=== PATIENT | female | born 1965 | race Caucasian/White ===

== ENCOUNTER → 2017-06-18 | Day surgery (SDC) | payer MEDICARE, MEDICAID ==
[~2017-06-18] MED LIST: AMLODIPINE BESYL5 MG PO; ASPIR 8181 MG PO; CARVEDILOL25 MG PO; GLUCOTROL5 MG PO; HYDROCHLOROTHIA25 M2 PO; HYDROCODONE-AP1 EAC6 PO; RENAL CAPS SOFTG1 MG PO
[2017-06-18 09:09] LABS: HEMATOCRIT 30.6 % (37.0-47.0); HEMOGLOBIN 10.7 gm/dL (12.0-15.0); MCH 31.3 pg (26.0-34.0); MCHC 34.9 g/dL (28.0-37.0); MCV 89.6 fL (80.0-100.0); RBC 3.41 mil/uL (4.20-5.00); RDW-CV 13.7 % (10.5-14.5); WBC 5.7 thou/uL (4.0-11.0)
[2017-06-18 09:16] LABS: CALCIUM 9.5 mg/dL (8.5-10.1); CREATININE 4.2 mg/dL (0.6-1.3); POTASSIUM 4.7 mmol/L (3.5-5.1)
[2017-06-18 09:21] LABS: ALBUMIN 3.2 g/dL (3.4-5.0); TOTAL BILIRUBIN 0.4 mg/dL (<0.1-1.0); TOTAL PROTEIN 7.8 g/dL (6.4-8.2)
--- NOTE | 2017-06-24 07:49 | OP ---
[facility] [address] [place] [address] OPERATIVE REPORT Name: JAMIL GALLARDO Flakito Room: [facility]#: [id number] Admission: 06/18/17 Attend Phys: Pankaj Figueroa Discharge: Date of : 61 Report #: [id number] THIS REPORT FOR: //name// CC: Pankaj Figueroa Mikel Abraham DATE OF SERVICE: 06/18/2017 PREOPERATIVE DIAGNOSIS: End-stage renal disease. POSTOPERATIVE DIAGNOSIS: End-stage renal disease. PROCEDURE: 1. Laparoscopic placement of peritoneal dialysis catheter. 2. Laparoscopic omentopexy. SURGEON: Pankaj Figueroa MD. ANESTHESIA: General. ESTIMATED BLOOD LOSS: Minimal. SPECIMEN: None. DESCRIPTION OF PROCEDURE: After informed consent was obtained, the patient was brought to the operating room and placed supine. SCDs were placed and working, preoperative antibiotics were administered, general anesthesia was induced. The abdomen was prepped and draped in the usual sterile fashion. A 5 mm incision was made in the left upper quadrant. A 5 mm trocar was placed under direct vision. Pneumoperitoneum was established. An 8 mm port was placed in the left rectus sheath. A 5 mm left-sided port was placed as well. Catheter was placed through the 8 mm port. It was then tunneled to the left upper quadrant in the abdomen. It was flushed with heparinized saline and it flushed very well. It also drained very well. Omentopexy was then performed using a 2-0 Vicryl suture and a PMI suture passer tacking the omentum up in 2 places, 1 in the right upper quadrant and 1 in the left upper quadrant. The ports were removed under direct vision. The skin was closed with 4-0 Monocryl. Sterile dressings were applied. COMPLICATIONS: [place] [address] OPERATIVE REPORT Name: JAMIL GALLARDO Room: [facility]#: [id number] Admission: 06/18/17 Attend Phys: Pankaj Figueroa Discharge: Date of : 61 Report #: [id number] DISPOSITION: The patient was taken to recovery in satisfactory condition. <ELECTRONICALLY SIGNED> By: Pankaj Figueroa MD 06/24/17 [id number] Figueroa MD /nt
== END | disposition home or self-care (01) ==
LOC: M.SUR 08:33
PROVIDERS: Surgery
DX: N18.6 End stage renal disease (principal); Z79.82 Long term (current) use of aspirin; Z79.899 Other long term (current) drug therapy; Z79.891 Long term (current) use of opiate analgesic

== ENCOUNTER → 2020-11-14 | Outpatient (CLI) | payer OTHER, MEDICAID ==
[2020-11-14 08:54] LABS: CALCIUM 8.7 mg/dL (8.5-10.1); CREATININE 13.7 mg/dL (0.6-1.3); POTASSIUM 5.5 mmol/L (3.5-5.1)
== END ==
LOC: M.LAB 07:56
PROVIDERS: ATTEND Internal Medicine Nephrology
DX: N18.6 End stage renal disease (principal)

== ENCOUNTER 2021-02-26 19:04 | Emergency (ER) | payer OTHER, MEDICAID ==
[~2021-02-26] VITALS: Ht 175.3 cm; Wt 106.0 kg
[2021-02-26] MEDS ORDERED: HYDROCODON-ACE1 EAC7 PO (21:06)
[2021-02-26] MEDS ORDERED: CRUTCHES MISCELL (21:09)
[2021-02-26 21:19] VITALS: BP 140/70
== END 2021-02-26 21:20 | disposition home or self-care (01) ==
LOC: M.ERS 19:04
DX: S82.65XA Nondisplaced fracture of lateral malleolus of left fibula, initial encounter for closed fracture (principal); S92.355A Nondisplaced fracture of fifth metatarsal bone, left foot, initial encounter for closed fracture; I10 Essential (primary) hypertension; Z90.711 Acquired absence of uterus with remaining cervical stump; Z79.82 Long term (current) use of aspirin; Z79.891 Long term (current) use of opiate analgesic; Z79.899 Other long term (current) drug therapy; X50.1XXA Overexertion from prolonged static or awkward postures, initial encounter; Y93.89 Activity, other specified; Y92.89 Other specified places as the place of occurrence of the external cause; Y99.8 Other external cause status